=== PATIENT | male | born 1995 | race Caucasian/White ===

== ENCOUNTER 2019-06-02 08:47 | Emergency (ER) | payer OTHER ==
[~2019-06-02] VITALS: Ht 177.8 cm; Wt 75.7 kg
[2019-06-02] MEDS ORDERED: DICLOFENAC POTA50 MG PO (12:48)
== END 2019-06-02 13:38 | disposition home or self-care (01) ==
LOC: ER 08:47
DX: R19.7 Diarrhea, unspecified (principal)

== ENCOUNTER 2019-09-04 14:58 | Emergency (ER) | payer OTHER ==
[~2019-09-04] VITALS: Ht 172.7 cm; Wt 74.8 kg
[~2019-09-04 14:58] MED LIST: DICLOFENAC POTA50 MG PO
== END 2019-09-04 19:07 | disposition home or self-care (01) ==
LOC: ER 14:58
DX: I20.1 Angina pectoris with documented spasm (principal)